=== PATIENT | female | born 1955 | race Caucasian/White ===

== ENCOUNTER 2020-08-04 09:39 | Emergency (ER) | payer MEDICAID ==
[~2020-08-04] VITALS: Ht 142.2 cm; Wt 72.6 kg
[2020-08-04 10:06] VITALS: Ht 142.2 cm; Wt 72.6 kg
[2020-08-04 12:41] VITALS: BP 145/91
== END 2020-08-04 12:41 | disposition home or self-care (01) ==
LOC: ED 09:39
DX: M19.012 Primary osteoarthritis, left shoulder (principal); M19.011 Primary osteoarthritis, right shoulder; M25.511 Pain in right shoulder; M25.512 Pain in left shoulder
CPT/HCPCS: J1885; Q0092